=== PATIENT | female | born 1935 | race Caucasian/White ===

== ENCOUNTER → 2022-12-24 11:24 | Outpatient (REF) | payer OTHER, SELFPAY ==
[2022-12-24 11:42] LABS: Hematocrit 25.2 % (37.0-47.0); Hemoglobin 8.4 g/dL (12.0-16.0); Mean Corp Hgb Conc. 33.3 g/dL (33.0-37.0); Mean Corpuscular Hgb 31.2 pg (27.0-31.0); Mean Corpuscular Volume 93.7 fL (81.0-99.0); Mean Platelet Volume 10.7 fL (7.4-10.4); Platelet Count 196 10^3/uL (130-400); Red Blood Cell Count 2.69 10^6/uL (4.20-5.40); White Blood Cell Count 5.3 10^3/uL (4.8-10.8)
[2022-12-24 12:06] LABS: Blood Urea Nitrogen 42 mg/dl (7-17); Calcium 9.4 mg/dl (8.4-10.2); Carbon Dioxide 17 mmol/L (22-30); Chloride 110 mmol/L (98-107); Glomerular Filtration Rate 38.8; Glucose 106 mg/dl (70-99); Sodium 139 mmol/L (135-145)
== END ==
LOC: OLABWHC 11:24
PROVIDERS: ATTENDING PHYSICIAN Internal Medicine
DX: E11.9 Type 2 diabetes mellitus without complications (principal); B96.1 Klebsiella pneumoniae [K. pneumoniae] as the cause of diseases classified elsewhere; E03.9 Hypothyroidism, unspecified; I50.32 Chronic diastolic (congestive) heart failure; D64.9 Anemia, unspecified; A09 Infectious gastroenteritis and colitis, unspecified; E44.0 Moderate protein-calorie malnutrition; M62.81 Muscle weakness (generalized)
CPT/HCPCS: 36415; 80048; 85027

== ENCOUNTER 2023-10-15 14:51 | Inpatient (IN) | payer OTHER, SELFPAY ==
[2023-10-15] VITALS (7 sets, daily range): BP systolic 131–163; BP diastolic 53–67; BMI 21.4; BMI 21.0
--- NOTE | 2023-10-15 12:15 | ED.GENMED ---
History of Present Illness
General
Chief Complaint: Change in Mental Status
Source: family
Time Seen by Provider: 10/15/23 11:40
History of Present Illness
History of Present Illness:
88-year-old female with past medical history of CVA, CAD, CHF, previous IA, recently treated for urinary tract infection and finished antibiotic 2 days ago presents to the emergency department via ambulance after family noticed patient was confused
overnight with daughter stating that the patient called her at 4 AM stating that she was seeing children in her room playing with a water hose and patient wanted to call 911 as she could not find family members for the children. Family notes that
this has been occurring more frequently over the last few days. The facility that patient is a long-term resident at gave her IV fluids on Saturday which family seem to believe perked the patient up but Saturday started noticing change in mental
status again. There have been no reported fevers, nausea or vomiting, bowel changes and patient is unable to tell me if she is experienced any urinary symptoms including dysuria/frequency/urgency. Family has no other concerns at this time
Past History
Past History
ED Past Medical History: CAD, Cancer (Skin), CVA, HTN, Hypercholesterolemia, NIDDM, Hypothyroidism and Other (diarrhea w/ h/o c dif, CRI, PVD, Cellulitis,)
ED Past Surgical History: Appendectomy, Cardiac (CABG 5 vessel), Cholecystectomy, Gynecological (Hysterectomy), Orthopedic and Other (stents in legs,)
Patient has exhibited threatening behavior?: No
PSI?: No
Social History
Tobacco: Former smoker
Alcohol: Occasional
Drug: None
Personal:
Living: alone
Employment: Not employed
Family History
Family History: Other (Noncontributory)
Review of Systems
Review of Systems
All Other Systems: ROS reviewed and negative except as documented in HPI and ROS
Phy Exam
Physical Exam
Physical Exam:
GENERAL: Sleepy but arousable to voice, in no acute distress
HEAD: NCAT
EYE: clear conjunctiva
NECK: Supple
ENT: o/p clr, mildly dry mucous membranes
CARDIAC: Regular rate and rhythm .
LUNGS: Clear breath sounds bilaterally, no acute respiratory distress, no wheezes/rales/rhonchi
ABDOMEN: Soft, without focal tenderness, no r/g, no cvat
NEUROLOGICAL: Alert and oriented to self and year but was unaware of place
SKIN: Warm and dry, skin intact.
MUSCULOSKELETAL: trace ankle edema bilateral, well perfused.
PSYCH: Normal and appropriate interaction.
Scores
Heart Failure Risk
Heart Failure Risk Score: Not Applicable
Heart Score for Chest Pain Patients
STEMI patient?: Not applicable
Withdrawal Assessment of Alcohol
Withdrawal Assessment Completed?: Not applicable
Course
Orders/Labs/Results
Orders:
Orders
10/15/23 11:44
Complete Blood Count/With Diff Urgent
Comprehensive Metabolic Panel Urgent
10/15/23 11:49
Straight cath- Treatment ONCE
10/15/23 11:50
Electrocardiogram (*1) Urgent
Reason for Study: Other
Other Reason for Exam: change in mental status
CT Head W/o Iv Contrast Urgent
Comment:
Reason For Exam: change in mental status
EKG- Treatment ONCE
CR Chest Portable - 1 View Urgent
Comment:
Reason For Exam: AMS
Reason Study Needs to be Portable: Unable to Transport
10/15/23 12:01
Lactic Acid Q4H
Comment: CANCEL 2nd LACTIC ACID IF 1st LACTIC ACID IS LESS THAN 2
10/15/23 12:02
Urinalysis Reflex To Culture Urgent
Date Specimen was Collected: 10/15/23
Time Specimen was Collected: 11:59
Urine Microscopic Reflex Cult Urgent
Urine Culture Urgent
CARA Source: U
Specimen Description:
Date Specimen was Collected: 10/15/23
Time Specimen was Collected: 11:59
10/15/23 12:40
0.9% Sodium Chloride 1000 ml [Nss] 1,000 ml IV BOLUS
10/15/23 12:43
Meropenem [Merrem] 500 mg IV NOW STA
10/15/23 14:26
CT Abd/pel Without Iv Or Oral Urgent
Comment:
Reason For Exam: abdominal pain
10/15/23 14:34
Admit/Transfer Patient As Directed
Co-Sign Provider:
Level of Care: Inpatient admission
Assign to:: Telemetry
Physician / Group: Sarkis
Diagnosis: TME/UTI
Reason for Telemetry: Arrhythmia
Date to Stop Telemetry: 10/18/23
Time to Stop Telemetry: 11:00
Reason for Hospitalization: IV abx
Expected length of stay greater than two midnights?: Yes
ELOS- Estimated Length of Stay in days: 3
I certify the patient meets the requirements for IP care: Yes
10/15/23 14:35
PRN Pain Medication Management As Directed
May give lesser potent ordered pain med per pt: Yes
preference::
Protocol:: Medication orders for pain may be administered in a
manner that supports deferring to patient preference
when the pt is:
- Requesting an ordered lesser potent pain medication.
Least to most potent pain medications are defined
as: acetaminophen < NSAID < tramadol < opioids
(morphine, oxycodone, hydromorphone).
- Requesting a lesser dose of the same medication IF
ORDERED.
- Requesting a less intrusive route of administration
if both routes are prescribed by the provider (PO <
IV).
10/15/23 14:39
Code Status As Directed
Resuscitation Status: Do not resuscitate
Based on pt advanced directive or healthcare POA form: Yes
DNR Bracelet Application ONCE
10/15/23 16:00
Lactic Acid Q4H
Comment: CANCEL 2nd LACTIC ACID IF 1st LACTIC ACID IS LESS THAN 2
10/18/23 11:00
DC Protocol for Telemetry ONCE
Abnormal Lab Results
10/15/23 10/15/23
11:44 12:02
RBC 3.02 L 10^6/uL
(4.20-5.40)
Hgb 8.8 L g/dL
(12.0-16.0)
Hct 25.7 L %
(37.0-47.0)
Absolute Lymphs (auto) 1.0 L 10^3/uL
(1.2-3.4)
Lymphocytes % 15.0 L %
(20.5-51.1)
Sodium 132 L mmol/L
(135-145)
BUN 43 H mg/dl
(7-17)
Creatinine 1.7 H mg/dL
(0.6-1.0)
Glucose 180 H mg/dl
(70-99)
AST 12 L U/L
(14-36)
Total Protein 6.1 L g/dl
(6.3-8.2)
Albumin 3.4 L g/dl
(3.5-5.0)
Leukocyte Esterase Rfl 2+ A
(Negative)
Urine WBC (Reflex) 26-30 A /HPF
(0-5)
Urine Bacteria (Reflex) Many A
(Negative)
Urine Albumin (Reflex) 1+ A
(Neg - Trace)
10/15/23 11:44
10/15/23 11:44
Vital Signs
Initial and Last Documented VS:
Initial Vital Signs
Temp Pulse Pulse Ox
98.8 F 72 94
10/15/23 11:12 10/15/23 11:12 10/15/23 11:12
Last Documented Vital Signs
Temp Pulse Resp BP Pulse Ox
98.8 F 65 16 141/58 93
10/15/23 11:15 10/15/23 14:30 10/15/23 14:30 10/15/23 14:00 10/15/23 14:30
MDM/Problems Addressed
Differential Diagnosis Includes:
dementia, acute delirium, UTI, pneumonia, CVA
MDM/Problems Addressed:
88-year-old female with presenting to the emergency department via EMS for evaluation of reported change in mental status. This is seemingly been waxing and waning over the course of the last few days. Patient recently completed a treatment for
urinary tract infection with oral antibiotics this past Saturday. No reported fevers at facility. She is pleasant on arrival here, mildly confused but in no acute distress. Hemodynamically stable. Will check labs, urine, chest x-ray and head CT.
Disposition pending.
Chronic conditions affecting care: Neurological disorder (previous CVA)
*Radiology
Radiology exam reviewed: radiology read reviewed
*Pulse Oximetry
Patient hypoxic: no
*EKG
Interpreted by ED Provider?: Yes
Comparison EKG: changes noted
Heart Rate: 56
Rate: bradycardiac
Rhythm: sinus
[place]: left axis deviation
Ischemia: non-specific ST changes
*[employer] Interpretation
Rate: bradycardiac
Rhythm: sinus
*Critical Care Note
Total Time (30-74mins, 75-104mins- exclusive of procedures): Not Applicable
Data Reviewed
Review of Other/Old Records Reveals: Labs and Records
Patient Management
Discussion with other providers: Hospitalist
Escalation/DeEscalation of care consider admission/obs:
Patient's labs reveal a chronic anemia, she also has known mild chronic kidney disease but has a slightly worsening acute kidney injury today. This will be treated with small IV fluids. Patient's urinalysis noted for 2+ leukocyte esterase and
26-30 WBCs which could in the UTI. Patient had a urine culture done in February 2023 which grew ESBL E. coli which had significant resistance profile. Based off of patient's allergies combined with the resistance profiles will treat with Merrem
for the time being. Hospitalist team was notified and accepts for continued evaluation and treatment. Patient is currently hemodynamically stable although still appears somewhat from baseline.
ED Attending Note
-
Portions of this chart may have been created with voice recognition software.� Occasional wrong word or��sound alike� substitutions may have occurred due to the inherent limitations of voice recognition software.
Discharge Plan
Departure
Patient Disposition: Admit
Date of Disposition: 10/15/23
Time of Disposition: 12:45
Presentation/result/management discussed w/ accepting MD/DO: Hospitalist
Discharge Problem:
Acute UTI, Delirium
Prescriptions:
No Action
ezetimibe 10 MG tablet
10 mg PO HS
levothyroxine 88 MCG tablet
88 mcg PO DAILY
carvedilol 25 mg Tablet
25 mg PO BID
atorvastatin 20 mg tablet
20 mg PO HS
epoetin calin-epbx 10,000 unit/mL Solution
10,000 unit SC Q21D
clonidine 0.3 mg/24 hr patch weekly
1 patch transdermal QWEEK
cinacalcet 30 mg Tablet
30 mg PO DAILY Qty: 30 0RF
methenamine hippurate 1 gram Tablet
1 g PO BID
fluticasone propionate 50 mcg/actuation [place],Suspension
2 spray INTRANASAL DAILY
acetaminophen 325 mg tablet
650 mg PO DAILYPRN PRN (Reason: mild pain)
clopidogrel 75 mg Tablet
75 mg PO DAILY Qty: 30 0RF
melatonin 5 mg Tablet
5 mg PO HS Qty: 30 0RF
nifedipine 30 mg Tablet Extended Release
90 mg PO BID Qty: 120 0RF
isosorbide mononitrate 60 mg Tablet Extended Release 24 Hr
120 mg PO DAILY Qty: 60 0RF
sodium bicarbonate 650 mg Tablet
650 mg PO BID Qty: 60 0RF
famotidine 20 mg Tablet
20 mg PO QPM Qty: 30 0RF
tamsulosin 0.4 mg Capsule
0.4 mg PO DAILY Qty: 30 0RF
dicyclomine 20 mg Tablet
20 mg PO TIDPRN PRN (Reason: abd cramps)
escitalopram oxalate 10 mg Tablet
10 mg PO DAILY
cholecalciferol (vitamin D3) [Vitamin D3] 125 mcg (5,000 unit) Tablet
125 mcg PO DAILY
torsemide 20 mg tablet
40 mg PO BID
hydralazine 50 mg tablet
50 mg PO TID
Referrals:
Laci Angeles MD [Family Provider] -
Interventions
Interventions:
*Risk Screen - Suicide Last Done: 10/15/23 11:12
*General Assessment Last Done: 10/15/23 11:12
*Neglect/Abuse Screening Last Done: 10/15/23 11:12
ED- Neurological Assessment Last Done: 10/15/23 11:18
ED Swallowing Screen Last Done: 10/15/23 11:18
Discharge Date and Time
Print Language: TURKISH
[2023-10-15 12:21] LABS: Urine Albumin 1+ (Neg - Trace); Urine Bilirubin Negative (Negative); Urine Character Clear (Clear); Urine Color Yellow; Urine Glucose Negative (Negative); Urine Ketone Negative (Negative); Urine Leukocyte 2+ (Negative); Urine Nitrite Negative (Negative); Urine Occult Blood Negative (Negative); Urine Urobilinogen Negative (Neg - 1+)
[2023-10-15 12:22] LABS: % Basophils 0.7 % (0-2); % Eosinophils 5.6 % (0-6); % Immature Granulocytes 0.4 % (0-0.5); % Monocytes 8.9 % (1.7-9.3); % Neutrophils 69.4 % (42.2-75.2); Absolute Basophils 0.1 10^3/uL (0-0.2); Absolute Eosinophils 0.4 10^3/uL (0-0.7); Absolute Monocytes 0.6 10^3/uL (0.1-0.6); Absolute Neutrophils 4.7 10^3/uL (1.4-6.5); Hematocrit 25.7 % (37.0-47.0); Hemoglobin 8.8 g/dL (12.0-16.0); Mean Corp Hgb Conc. 34.2 g/dL (33.0-37.0); Mean Corpuscular Hgb 29.1 pg (27.0-31.0); Mean Corpuscular Volume 85.1 fL (81.0-99.0); Nucleated Red Blood Cells % 0 %; Platelet Count 183 10^3/uL (130-400); Red Blood Cell Count 3.02 10^6/uL (4.20-5.40); Red Cell Dist. Width 14.5 % (11.5-14.5); White Blood Cell Count 6.8 10^3/uL (4.8-10.8)
[2023-10-15 12:29] LABS: Urine Red Blood Cell 0-2 /HPF (0-2); Urine Squamous Cell 0-2 /LPF (Few); Urine White Cell 26-30 /HPF (0-5)
[2023-10-15 12:29] LABS: Lactic Acid 0.8 mmol/L (0.7-2.0)
[2023-10-15 12:30] LABS: Urine Bacteria Many (Negative)
[2023-10-15 12:30] LABS: ALT (SGPT) < 10 U/L (0-35); AST (SGOT) 12 U/L (14-36); Albumin 3.4 g/dl (3.5-5.0); Alkaline Phosphatase 79 U/L (38-126); Blood Urea Nitrogen 43 mg/dl (7-17); Carbon Dioxide 27 mmol/L (22-30); Chloride 98 mmol/L (98-107); Estimated Creatinine Clearance 20 ml/min; Glucose 180 mg/dl (70-99); Potassium 4.1 mmol/L (3.5-5.1); Sodium 132 mmol/L (135-145); Total Bilirubin 0.3 mg/dl (0.2-1.3); Total Protein 6.1 g/dl (6.3-8.2); eGFR 28.84
[2023-10-15] MEDS: NSS 1000 IV ×2 (12:57→16:22)
[2023-10-15] MEDS: MERREM 500 MG IV (12:58)
--- NOTE | 2023-10-15 14:03 | PHANOTE ---
Addendum entered by Naman Bashir 10/15/23 14:44:
Called again at 14:42, different lead front end developer staff member picked up, but once again went to voicemail after transfer to nurse.
Original Note:
med rec brandon(10/15/23)-Unable to locate medication list in ED. Called [facility] at 13:15 and 13:47, lead front end developer picked up but went to voicemail when transferred to nurse. Compiled list through [facility] and [facility], but [facility] records were very
old(from 02/28/2023). Will attempt to call again at later time.
--- NOTE | 2023-10-15 14:43 | HPS.HSE ---
Family Physician
-
Family Physician: Laci Angeles
Chief Complaint
-
Change in mental status
History of Present Illness
Patient is an 88 y/o with a PMH CVA, CAD, CHF, HTN, CKD, and hypothyroidism who reports to the ED via EMS for altered mental status x 48 hrs. History is limited by patient's confusion and family wasn't at bedside. Patient states she is a a rehab
facility and is currently being treated for a UTI but can't remember the antibiotic she was taking. She has had lower abdominal and back pain since yesterday and admits to feeling clammy, dysuria, frequency and urgency. She says her appetite is poor
but has been drinking a lot of water. She denies fever, chills, chest pain, shortness of breath, palpitations, nausea, vomiting, changes in bowel movements or edema. Family previously at bedside told ED staff patient was experiencing hallucinations
over the weekend.
Medical History
Past Medical History
Past Medical History: Reports Other
Additional Past Medical History:
ASCVD (CAD and PAD)
Hypertension
Chronic HFpEF
CKD III
Hypothyroidism
Urinary Retention
Generalized Anxiety
Hyperparathyroidism
Past Surgical History: Reports Other
Additional Past Surgical History:
CABG x 5
PTCA with Coronary Stenting
Right LE Arterial Stents
SHAINA
Cholecystectomy
Right Hip ORIF (01/06/23)
Social History
Tobacco: Former Smoker (Quit smoking over 50 years ago.)
Personal:
Living: [facility]
Family History
Family History: Not pertinent
Allergies / Home Medications
Allergies reflects when Allergies were last updated in [facility].
Home Medications with original date entered in [facility]
Allergy/Medication List:
Allergies
Allergy/AdvReac Type Severity Reaction Status Date / Time
lactose Allergy Nausea Verified 02/23/23 10:03
latex [Latex] Allergy Rash Verified 02/23/23 09:04
Latex, Natural Rubber Allergy Rash Verified 02/23/23 09:04
levofloxacin Allergy Rash Verified 02/23/23 09:04
peanut Allergy Itching/NEDA Verified 02/23/23 09:04
H
Penicillins Allergy Rash; Verified 02/27/23 09:05
TOLERATES
CEPHALOSPORINS
Sulfa (Sulfonamide Allergy Rash Verified 02/23/23 09:04
Antibiotics)
Home Medications
ezetimibe 10 mg tablet 10 mg PO HS High cholesterol 05/03/10
levothyroxine 88 mcg tablet 88 mcg PO DAILY Thyroid 09/04/20
atorvastatin 20 mg tablet 20 mg PO HS High Cholesterol 07/26/22
carvedilol 25 mg tablet 25 mg PO BID Heart Failure 07/26/22
epoetin aclin-epbx 10,000 unit/mL injection solution 10,000 unit SC Q21D anemia 07/26/22
clonidine 0.3 mg/24 hr weekly transdermal patch 1 patch transdermal QWEEK Neurological Condition 01/04/23
cinacalcet 30 mg tablet 30 mg PO DAILY Kidney Disease #30 tabs 02/19/23
acetaminophen 325 mg tablet 650 mg PO DAILYPRN PRN mild pain 02/23/23
fluticasone propionate 50 mcg/actuation nasal spray,suspension 2 spray intranasal DAILY Allergies 02/23/23
methenamine hippurate 1 gram tablet 1 g PO BID Urinary Issue 02/23/23
clopidogrel 75 mg tablet 75 mg PO DAILY #30 tabs 02/28/23
famotidine 20 mg tablet 20 mg PO QPM #30 tabs 02/28/23
isosorbide mononitrate 60 mg tablet,extended release 24 hr 120 mg (2 x 60 mg) PO DAILY #60 tabs 02/28/23
melatonin 5 mg tablet 5 mg PO HS #30 tabs 02/28/23
nifedipine 30 mg tablet,extended release 90 mg (3 x 30 mg) PO BID #120 tabs 02/28/23
sodium bicarbonate 650 mg tablet 650 mg PO BID #60 tabs 02/28/23
tamsulosin 0.4 mg capsule 0.4 mg PO DAILY #30 caps 02/28/23
cholecalciferol (vitamin D3) 125 mcg (5,000 unit) tablet (Vitamin D3) 125 mcg PO DAILY 10/15/23
dicyclomine 20 mg tablet 20 mg PO TIDPRN PRN abd cramps 10/15/23
escitalopram oxalate 10 mg tablet 10 mg PO DAILY 10/15/23
hydralazine 50 mg tablet 50 mg PO TID 10/15/23
torsemide 20 mg tablet 40 mg PO BID 10/15/23
Review of Systems
-
A 12 point ROS was completed and negative except as noted: Yes
Constitutional: Denies Fever or Chills
Respiratory: Denies Cough or Trouble Breathing
Cardiac: Denies Chest Pain or Palpitations
Physical Exam
Vital Signs
Vital Signs
Temp Pulse Resp BP Pulse Ox
98.8 F 65 16 141/58 93
10/15/23 11:15 10/15/23 14:30 10/15/23 14:30 10/15/23 14:00 10/15/23 14:30
Physical Exam
General: Comfortable and Conversant
HEENT: Anicteric and Moist mucous membranes
Respiratory: Clear and Non Labored Respirations
Cardiac: S1/S2 and Regular Rhythm
GI: Soft and Non Tender
Rectal: Deferred by Provider
Musculoskeletal: No Clubbing, No Cyanosis and No Edema
Skin: Warm and Dry
Neuro: Awake, Alert, Oriented and Nonfocal/grossly intact
Psych: Confused
Laboratory Results
-
10/15/23 11:44
10/15/23 11:44
Laboratory Results
Lactic Acid 0.8 mmol/L (0.7-2.0) 10/15/23 12:01
Total Bilirubin 0.3 mg/dl (0.2-1.3) 10/15/23 11:44
AST 12 U/L (14-36) L 10/15/23 11:44
ALT < 10 U/L (0-35) 10/15/23 11:44
Alkaline Phosphatase 79 U/L (38-126) 10/15/23 11:44
Data Reviewed
-
CT Scan: Report Reviewed by me
Lab Data: Labs Reviewed by me
Impression/Plan
-
TME secondary to UTI
-Reviewed prior culture data with ESBL E.coli
-Check Abd/Pelvis CT scan
-Continue meropenem
-Await urine culture
CKD Stage III
-Creatinine slightly above baseline
-Give amount of IVFs overnight
-Hold furosemide
ASCVD (CAD and PAD)
-Continue Plavix
-Hold isosorbide until able to confirmed dose
Chronic HFpEF
-Hold torsemide
-Monitor Is&Os and Daily Weights
Hypertension
-Continue Coreg, Hydralazine and Nifedipine with hold parameters
-Continue clonidine patch
Hyperlipidemia
-Continue atorvastatin and Zetia
Anemia of Chronic Disease
-Hgb at baseline
Hypothyroidism
-Continue levothyroxine
Generalized Anxiety Disorder
-Continue Lexapro
Hyperparathyroidism
-Continue cinacalcet
DVT proph: SC Heparin
Code Status: DNR per [place] Paperwork
--- NOTE | 2023-10-15 15:33 | W.PN.UPDATE ---
Update Note
Progress Note Update
I have independently evaluated the patient and agreeable with assessment and plan from same date H&P. In addition:
88yo F with PMHx CKD stage 3, CAD s/p PCI, Hx of CVA, HLD, anemia, hypothyroidism, HFpEF, Hx of urinary retention brought with fluctuating mental status for more then 48h. With previous Hx of ESBL UTI and UA concerning for infection - started on
Merrem
#Acute septic encephalopathy
Merrem
Follow Ucx
Bcx
CT abd/pelvis: no nephrolithiasis or hydronephrosis
#CKD stage 3 with mild Cr elevation
IVF and follow Cr
#CAD s/p PCI
#Chronic HFpEF
#HLD
#Essential HTN
#Anemia of chronic disease
#Hypothyroidism
#GALILEA
#Hyperparathyroidism
cont home meds
#Stable R renal mass
Unchanged since 10.30.22
Outpatient Urologist
#Hiatal hernia
#Liver cyst
#DJD
#Diverticulosis
follow up with PCP
DNR/DNI
DVT ppx Hep
It was more then 76min spent admitting patient, reviewing previous chart and new test results and direct patient care
[2023-10-15] MEDS: APRESOLINE 50 MG PO ×2 (16:22→22:20)
[2023-10-15] MEDS: HEPARIN 5000 UNITS SC (16:23)
[2023-10-15] MEDS: PEPCID 20 MG PO (17:34)
[2023-10-15] MEDS: COREG 25 MG PO (20:27)
[2023-10-15] MEDS: PROCARDIA XL (EXTENDED RELEASE) 90 MG PO (20:27)
[2023-10-15] MEDS: SODIUM BICARBONATE 650 MG PO (20:27)
[2023-10-15] MEDS: ZETIA 10 MG PO (22:21)
[2023-10-15] MEDS: LIPITOR 20 MG PO (22:21)
[2023-10-16] VITALS (7 sets, daily range): BP systolic 137–189; BP diastolic 44–67; PULSE 71; BMI 21.3
[2023-10-16] MEDS: HEPARIN 5000 UNITS SC ×3 (01:04→16:55)
[2023-10-16] MEDS: MERREM 500 MG IV ×2 (01:04→11:05)
[2023-10-16] MEDS: STERILE WATER FOR INJECTION 10 ML IV ×2 (01:04→11:06)
[2023-10-16] MEDS: SYNTHROID 88 MCG PO (05:34)
[2023-10-16 06:54] LABS: Hematocrit 26.9 % (37.0-47.0); Hemoglobin 9.4 g/dL (12.0-16.0); Mean Corp Hgb Conc. 34.9 g/dL (33.0-37.0); Mean Corpuscular Hgb 30.3 pg (27.0-31.0); Mean Corpuscular Volume 86.8 fL (81.0-99.0); Mean Platelet Volume 9.5 fL (7.4-10.4); Platelet Count 149 10^3/uL (130-400); Red Cell Dist. Width 14.2 % (11.5-14.5); White Blood Cell Count 5.9 10^3/uL (4.8-10.8)
[2023-10-16 07:14] LABS: Blood Urea Nitrogen 35 mg/dl (7-17); Calcium 8.9 mg/dl (8.4-10.2); Carbon Dioxide 23 mmol/L (22-30); Chloride 108 mmol/L (98-107); Estimated Creatinine Clearance 26 ml/min; Glucose 109 mg/dl (70-99); Potassium 3.9 mmol/L (3.5-5.1); Sodium 138 mmol/L (135-145)
[2023-10-16 07:44] LABS: TSH Reflex To Free T4 2.36 uIU/ml (0.47-4.68)
[2023-10-16] MEDS: SODIUM BICARBONATE 650 MG PO ×2 (07:58→20:05)
[2023-10-16] MEDS: FLOMAX 0.4 MG PO (07:58)
[2023-10-16] MEDS: LEXAPRO 10 MG PO (07:59)
[2023-10-16] MEDS: SENSIPAR 30 MG PO (07:59)
[2023-10-16] MEDS: PLAVIX 75 MG PO (07:59)
[2023-10-16] MEDS: COREG 25 MG PO ×2 (07:59→20:05)
[2023-10-16] MEDS: APRESOLINE 50 MG PO ×3 (07:59→22:54)
[2023-10-16] MEDS: CATAPRES-TTS-3 0.3 MG TRANSDERM (08:02)
[2023-10-16] MEDS: PROCARDIA XL (EXTENDED RELEASE) 90 MG PO ×2 (08:07→20:06)
--- NOTE | 2023-10-16 10:24 | W.PN.HOSP.TC ---
Today's Communication/Plan
-
cont merrem
Assessment / Plan
Assessment / Plan
88yo F with PMHx CKD stage 3, CAD s/p PCI, Hx of CVA, HLD, anemia, hypothyroidism, HFpEF, Hx of urinary retention brought with fluctuating mental status for more then 48h. With previous Hx of ESBL UTI and UA concerning for infection - started on
Merrem
#Acute septic encephalopathy
Merrem
Follow Ucx: E.coli
Bcx
CT abd/pelvis: no nephrolithiasis or hydronephrosis
#CKD stage 3 with mild Cr elevation
IVF and follow Cr
#CAD s/p PCI
#Chronic HFpEF
#HLD
#Essential HTN
#Anemia of chronic disease
#Hypothyroidism
#GALILEA
#Hyperparathyroidism
cont home meds
#Stable R renal mass
Unchanged since 10.30.22
Outpatient Urologist
#Hiatal hernia
#Liver cyst
#DJD
#Diverticulosis
follow up with PCP
DNR/DNI
DVT ppx Hep
I have spent at least 56min reviewing the chart, test results and direct patient care
Anticipated Discharge: > 48 hours
Subjective/Interval History
-
Date of Service: October 16, 2023
Objective Data
-
Labs:
Laboratory Results
10/16/23
06:34
WBC 5.9
Hgb 9.4 L
Hct 26.9 L
Plt Count 149
Sodium 138
Potassium 3.9
Chloride 108 H
Carbon Dioxide 23
BUN 35 H
Creatinine 1.3 H
Glucose 109 H
Calcium 8.9
Vital Signs:
Vital Signs
Temp Pulse Resp BP Pulse Ox
97.6 F 71 18 148/64 94
10/16/23 07:00 10/16/23 07:59 10/16/23 07:00 10/16/23 07:59 10/16/23 09:07
Review of Systems
-
Unable to obtain full review of systems at this time due to: Dementia
History Source: Patient
All other systems: Reviewed and negative
Physical Exam
-
General: Well Developed and Well Nourished
HEENT: Normocephalic and Atraumatic
Respiratory: Clear to Auscultation
Cardiac: Regular Rhythm
GI: Soft, Nontender and Nondistended
Genito-urinary: No Costovertebral Tender
Musculoskeletal: No Clubbing, No Cyanosis and No Edema
Skin: Warm
Neuro: Awake, Alert and Oriented
Psych: Calm and Apparent Dementia
[2023-10-16] MEDS: NSS 1000 IV (11:06)
--- NOTE | 2023-10-16 15:09 | CM ---
Pt admitted for UTI/confusion
From [facility] - LTC - confirmed with daughter and Titi at
Daughter prefers pt to return to [facility]
PCP - Laci Angeles
Pharm - [facility]
Plan - anticipate return to the [facility] when medically stable
[2023-10-16] MEDS: PEPCID 20 MG PO (17:00)
[2023-10-16] MEDS: TYLENOL 650 MG PO (20:11)
[2023-10-16] MEDS: ZETIA 10 MG PO (22:54)
[2023-10-16] MEDS: LIPITOR 20 MG PO (22:54)
[2023-10-17] MEDS: HEPARIN 5000 UNITS SC ×2 (00:24→08:16)
[2023-10-17] MEDS: STERILE WATER FOR INJECTION 10 ML IV ×2 (00:24→12:02)
[2023-10-17] MEDS: MERREM 500 MG IV (00:25)
[2023-10-17] MEDS: NSS 1000 IV (00:34)
[2023-10-17 03:25] VITALS: BP 162/64
[2023-10-17] MEDS: SYNTHROID 88 MCG PO (05:30)
[2023-10-17 06:00] VITALS: BMI 21.4
[2023-10-17 06:21] LABS: % Basophils 0.8 % (0-2); % Eosinophils 4.7 % (0-6); % Immature Granulocytes 0.5 % (0-0.5); % Lymphocytes 16.2 % (20.5-51.1); % Monocytes 8.7 % (1.7-9.3); % Neutrophils 69.1 % (42.2-75.2); Absolute Basophils 0.1 10^3/uL (0-0.2); Absolute Eosinophils 0.3 10^3/uL (0-0.7); Absolute Monocytes 0.5 10^3/uL (0.1-0.6); Absolute Neutrophils 4.3 10^3/uL (1.4-6.5); Hematocrit 28.3 % (37.0-47.0); Hemoglobin 9.6 g/dL (12.0-16.0); Mean Corp Hgb Conc. 33.9 g/dL (33.0-37.0); Mean Corpuscular Volume 88.4 fL (81.0-99.0); Mean Platelet Volume 9.4 fL (7.4-10.4); Nucleated Red Blood Cells % 0 %; Platelet Count 159 10^3/uL (130-400); Red Cell Dist. Width 14.4 % (11.5-14.5); White Blood Cell Count 6.2 10^3/uL (4.8-10.8)
[2023-10-17 06:51] LABS: ALT (SGPT) < 10 U/L (0-35); AST (SGOT) 12 U/L (14-36); Albumin 3.1 g/dl (3.5-5.0); Alkaline Phosphatase 82 U/L (38-126); Blood Urea Nitrogen 28 mg/dl (7-17); Carbon Dioxide 24 mmol/L (22-30); Chloride 111 mmol/L (98-107); Estimated Creatinine Clearance 29 ml/min; Glucose 103 mg/dl (70-99); Potassium 3.7 mmol/L (3.5-5.1); Sodium 141 mmol/L (135-145); Total Bilirubin 0.3 mg/dl (0.2-1.3); Total Protein 5.7 g/dl (6.3-8.2); eGFR 43.81
[2023-10-17 07:00] VITALS: BP 157/60
[2023-10-17] MEDS: SENSIPAR 30 MG PO (08:15)
[2023-10-17] MEDS: LEXAPRO 10 MG PO (08:15)
[2023-10-17] MEDS: APRESOLINE 50 MG PO ×2 (08:15→15:26)
[2023-10-17] MEDS: PROCARDIA XL (EXTENDED RELEASE) 90 MG PO (08:16)
[2023-10-17] MEDS: COREG 25 MG PO (08:16)
[2023-10-17] MEDS: PLAVIX 75 MG PO (08:16)
[2023-10-17] MEDS: FLOMAX 0.4 MG PO (08:16)
[2023-10-17] MEDS: SODIUM BICARBONATE 650 MG PO (08:16)
[2023-10-17 11:00] VITALS: BP 154/58
[2023-10-17] MEDS: REFRESH EYE DROPS (PF) 1 DROPS OPHTH (12:02)
[2023-10-17] MEDS: ROCEPHIN 1000 MG IV (12:02)
--- NOTE | 2023-10-17 12:28 | W.PN.HOSP.TC ---
Today's Communication/Plan
-
Rocephin
PT/OT and d/c depending on assessment
Assessment / Plan
Assessment / Plan
88yo F with PMHx CKD stage 3, CAD s/p PCI, Hx of CVA, HLD, anemia, hypothyroidism, HFpEF, Hx of urinary retention brought with fluctuating mental status for more then 48h. With previous Hx of ESBL UTI and UA concerning for infection - started on
Merrem, but Ucx grew pansensitive e.coli. Pending PT/OT and D/C
A/P:
#Acute septic encephalopathy - resolved
#UTI
Merrem
Follow Ucx: E.coli pansensitive - stwitch to Rocephin and Cefuroxime upon d/c
Bcx
CT abd/pelvis: no nephrolithiasis or hydronephrosis
#CKD stage 3 with mild Cr elevation
IVF and follow Cr
#CAD s/p PCI
#Chronic HFpEF
#HLD
#Essential HTN
#Anemia of chronic disease
#Hypothyroidism
#GALILEA
#Hyperparathyroidism
cont home meds
#Stable R renal mass
Unchanged since 10.30.22
Outpatient Urologist
#Hiatal hernia
#Liver cyst
#DJD
#Diverticulosis
follow up with PCP
DNR/DNI
DVT ppx Hep
I have spent at least 36min reviewing the chart, test results and direct patient care
Anticipated Discharge: Within 24 hours
Subjective/Interval History
-
Date of Service: October 17, 2023
Objective Data
-
Labs:
Laboratory Results
10/17/23
05:55
WBC 6.2
Hgb 9.6 L
Hct 28.3 L
Plt Count 159
Sodium 141
Potassium 3.7
Chloride 111 H
Carbon Dioxide 24
BUN 28 H
Creatinine 1.2 H
Glucose 103 H
Calcium 9.0
Total Bilirubin 0.3
AST 12 L
ALT < 10
Alkaline Phosphatase 82
Vital Signs:
Vital Signs
Temp Pulse Resp BP Pulse Ox
97.8 F 61 18 154/58 93
10/17/23 11:00 10/17/23 11:00 10/17/23 11:00 10/17/23 11:00 10/17/23 11:00
I&O
10/16/23 10/17/23 10/18/23
06:59 06:59 06:59
Intake Total 270 / 270
Balance 270 / 270
Review of Systems
-
History Source: Patient and Family
All other systems: Reviewed and negative
Physical Exam
-
General: No Apparent Distress
HEENT: Normocephalic
Respiratory: Clear to Auscultation
Cardiac: Regular Rhythm
GI: Soft, Nontender and Nondistended
Genito-urinary: No Costovertebral Tender
Musculoskeletal: No Clubbing, No Cyanosis and No Edema
Skin: Warm
Neuro: Awake, Alert and Oriented
Psych: Calm
--- NOTE | 2023-10-17 12:53 | CM ---
Addendum entered by Michelle Valentino 10/17/23 15:28:
Transport at 4:15PM
Facility aware
Spoke with daughter - aware
Discussed IMM with daughter
Plan - transfer to the [facility]
R - [phone]
- [phone]
Original Note:
Case management following for d/c planning
Medically ready for d/c per Dr Nazario
Spoke with Titi at [facility] - aware of d/c and SNF recs per PT/OT
Per Titi - have obtained auth at facility
Plan - transfer to the [facility]
R - [phone]
- [phone]
--- NOTE | 2023-10-17 12:53 | W.DCSUMMARY ---
Discharge Summary
Discharge Data
Date of Admission: 10/15/23
Date of Discharge: 10/17/23
-
Pending Results: No
Hospital Course
88yo F with PMHx CKD stage 3, CAD s/p PCI, Hx of CVA, HLD, anemia, hypothyroidism, HFpEF, Hx of urinary retention brought with fluctuating mental status for more then 48h. With previous Hx of ESBL UTI and UA concerning for infection - started on
Merrem, but Ucx grew pansensitive e.coli. STarted on Cefuroxime. VERONICA resolved. Torsemide dose decreased to once a day. Medically stable for discharge. I have spent at least 36 min preparing discharge
Patient was managed for:
#Acute septic encephalopathy
#CKD stage 3 with mild Cr elevation
#CAD s/p PCI
#Chronic HFpEF
#HLD
#Essential HTN
#Anemia of chronic disease
#Hypothyroidism
#GALILEA
#Hyperparathyroidism
#Stable R renal mass
#Hiatal hernia
#Liver cyst
#DJD
#Diverticulosis
Discharge Plan
-
Patient Disposition: Usp/SNF
Diet: Regular
Activity: As tolerated
Driving Restrictions: As prior to admission
Bathing Restrictions: OK to Shower
Referrals:
Laci Angeles MD [Family Provider] -
Prescriptions:
New
Refresh Classic (PF) 1.4-0.6 % Dropperette
1 drops ophthalmic (eye) QIDPRN PRN (Reason: dry eye, crust) 10 Days Qty: 1 0RF
torsemide 20 mg tablet
40 mg PO DAILY Qty: 30 0RF
Continued
ezetimibe 10 MG tablet
10 mg PO HS
levothyroxine 88 MCG tablet
88 mcg PO DAILY
carvedilol 25 mg Tablet
25 mg PO BID
atorvastatin 20 mg tablet
20 mg PO HS
epoetin calin-epbx 10,000 unit/mL Solution
10,000 unit SC Q21D
clonidine 0.3 mg/24 hr patch weekly
1 patch transdermal QWEEK
cinacalcet 30 mg Tablet
30 mg PO DAILY Qty: 30 0RF
methenamine hippurate 1 gram Tablet
1 g PO BID
fluticasone propionate 50 mcg/actuation [place],Suspension
2 spray INTRANASAL DAILY
acetaminophen 325 mg tablet
650 mg PO DAILYPRN PRN (Reason: mild pain)
clopidogrel 75 mg Tablet
75 mg PO DAILY Qty: 30 0RF
nifedipine 30 mg Tablet Extended Release
90 mg PO BID Qty: 120 0RF
sodium bicarbonate 650 mg Tablet
650 mg PO BID Qty: 60 0RF
famotidine 20 mg Tablet
20 mg PO QPM Qty: 30 0RF
tamsulosin 0.4 mg Capsule
0.4 mg PO DAILY Qty: 30 0RF
dicyclomine 20 mg Tablet
20 mg PO TIDPRN PRN (Reason: abd cramps)
escitalopram oxalate 10 mg Tablet
10 mg PO DAILY
cholecalciferol (vitamin D3) [Vitamin D3] 125 mcg (5,000 unit) Tablet
125 mcg PO DAILY
hydralazine 50 mg tablet
50 mg PO TID
isosorbide mononitrate 60 mg tablet extended release 24 hr
120 mg PO DAILY
melatonin 5 mg tablet
5 mg PO HS
Discontinued
torsemide 20 mg tablet
40 mg PO BID
Discharge Orders:
Discharge Patient (As Directed); Ordered 10/17/23
Ordered By: Sidney Dockery
Discharge Date and Time
Print Language: DANISH
[2023-10-17 15:25] VITALS: BP 168/69
--- NOTE | 2023-10-17 15:34 | PTCARENOTE ---
This Rn attempted to call report to [facility] using [phone] per CM note at 14:18, 14:20, 14:23, 15:07, and 15:34; there was no answer besides the very first call which was transferred and no one picked up at that time.
--- NOTE | 2023-10-21 16:32 | PN.CDI ---
Addendum entered and electronically signed by Sidney Dockery MD 10/22/23 10:27:
no update to be done - encephalopathy caused by infection
Original Note:
CDI
- -
CDI:
Physician Documentation Request
Admit Date: 10/15/23 14:51
Dear Doctor Sarkis,
Please review the following and provide your response in the progress notes.
Clinical Indicators:
Pt admitted with toxic metabolic encephalopathy and UTI.
10/15 & 10/16 progress notes: 'Acute septic encephalopathy.'
No documentation of sepsis noted in chart.
Selected Entries
10/15/23
11:12 10/15/23
13:15 10/15/23
14:30
Temp 98.8 F 98.2 97.6
Pulse 62 65
Resp Rate 16 17 16
Laboratory Tests
10/15/23 10/16/23 10/17/23
11:44 06:34 05:55
WBC 6.8 5.9 6.2
�Sepsis
-Systemic manifestations of infection, with 2 or more SIRS criteria which include:
-Fever > 100.4��F or hypothermia < 96.8��F
-Leukocytosis WBC > 12,000 or leukopenia, WBC < 4,000, or > 10% bands
-Tachycardia- > 90 beats/minute
-Tachypnea- RR > 20 breaths/minute or PaCO2 < 32mmHg
Source: Merck Manual 2013
Based on the above information and the recognized standard SIRS criteria, please clarify if sepsis is still an accurate diagnosis, and reflective of the patient�s condition, to ensure quality of the medical record.
Please clarify in the Progress Notes:
Sepsis is/was present and is a clinical diagnosis
Urinary tract Infection only
Use of terms such as suspected, likely, concern for, or probable (associated with a specific diagnosis that is being evaluated, monitored, or treated as if it exists) are acceptable and can be coded in the inpatient setting, when documented at the
time of discharge.
Thank you,
Myrna Farley RN, BSN
CDI Specialist
Available via [place] Text
Please use your independent medical judgment in providing your response.
== END 2023-10-17 16:33 | DRG 689 ==
LOC: 3 WEST ACU 14:51
PROVIDERS: Physician Assistant Medical; ADMITTING PHYSICIAN Internal Medicine; EMERGENCY PHYSICIAN Student in an Organized Health Care Education/Training Program; FAMILY PHYSICIAN Internal Medicine
DX: N39.0 Urinary tract infection, site not specified (principal); G93.41 Metabolic encephalopathy; I13.0 Hypertensive heart and chronic kidney disease with heart failure and stage 1 through stage 4 chronic kidney disease, or unspecified chronic kidney disease; I50.32 Chronic diastolic (congestive) heart failure; N17.9 Acute kidney failure, unspecified; D63.1 Anemia in chronic kidney disease; E11.22 Type 2 diabetes mellitus with diabetic chronic kidney disease; E11.51 Type 2 diabetes mellitus with diabetic peripheral angiopathy without gangrene; K76.89 Other specified diseases of liver; N18.30 Chronic kidney disease, stage 3 unspecified; E03.9 Hypothyroidism, unspecified; Z95.820 Peripheral vascular angioplasty status with implants and grafts; Z66 Do not resuscitate; B96.20 Unspecified Escherichia coli [E. coli] as the cause of diseases classified elsewhere; K44.9 Diaphragmatic hernia without obstruction or gangrene; E21.3 Hyperparathyroidism, unspecified; E78.00 Pure hypercholesterolemia, unspecified; F41.1 Generalized anxiety disorder; K57.30 Diverticulosis of large intestine without perforation or abscess without bleeding; R33.9 Retention of urine, unspecified; I25.10 Atherosclerotic heart disease of native coronary artery without angina pectoris; I25.2 Old myocardial infarction; N28.89 Other specified disorders of kidney and ureter; M19.90 Unspecified osteoarthritis, unspecified site; Z95.1 Presence of aortocoronary bypass graft; Z95.5 Presence of coronary angioplasty implant and graft; Z79.02 Long term (current) use of antithrombotics/antiplatelets; Z79.890 Hormone replacement therapy; Z79.899 Other long term (current) drug therapy; Z87.891 Personal history of nicotine dependence; Z90.49 Acquired absence of other specified parts of digestive tract; Z87.81 Personal history of (healed) traumatic fracture; Z86.73 Personal history of transient ischemic attack (TIA), and cerebral infarction without residual deficits; Z87.440 Personal history of urinary (tract) infections; Z90.710 Acquired absence of both cervix and uterus; Z88.0 Allergy status to penicillin; Z88.1 Allergy status to other antibiotic agents; Z88.2 Allergy status to sulfonamides
CPT/HCPCS: 70450; 71045; 74176; 80048; 80053; 81003; 81015; 83605; 84443; 85025; 85027; 87086; 87088; 87186; 93005; 96361; 96374; 97162; 97167; 99285

== ENCOUNTER 2023-11-19 16:35 | Emergency (ER) | payer OTHER, SELFPAY ==
[2023-11-19 16:40] VITALS: BP 123/47; BMI 23.4
[2023-11-19 17:00] VITALS: BP 124/47
[2023-11-19 17:17] LABS: % Basophils 0.6 % (0-2); % Eosinophils 3.8 % (0-6); % Immature Granulocytes 0.8 % (0-0.5); % Lymphocytes 9.5 % (20.5-51.1); % Monocytes 9.8 % (1.7-9.3); % Neutrophils 75.5 % (42.2-75.2); Absolute Basophils 0.1 10^3/uL (0-0.2); Absolute Eosinophils 0.3 10^3/uL (0-0.7); Absolute Immature Granulocytes 0.1 10^3/uL (0-0.05); Absolute Lymphocytes 0.8 10^3/uL (1.2-3.4); Absolute Monocytes 0.8 10^3/uL (0.1-0.6); Mean Corp Hgb Conc. 34.6 g/dL (33.0-37.0); Mean Corpuscular Hgb 29.7 pg (27.0-31.0); Mean Corpuscular Volume 85.8 fL (81.0-99.0); Mean Platelet Volume 9.2 fL (7.4-10.4); Nucleated Red Blood Cells % 0 %; Platelet Count 205 10^3/uL (130-400); Red Blood Cell Count 3.03 10^6/uL (4.20-5.40); Red Cell Dist. Width 14.4 % (11.5-14.5)
[2023-11-19 17:31] LABS: ALT (SGPT) < 10 U/L (0-35); AST (SGOT) 13 U/L (14-36); Albumin 2.9 g/dl (3.5-5.0); Alkaline Phosphatase 73 U/L (38-126); Blood Urea Nitrogen 43 mg/dl (7-17); Calcium 9.3 mg/dl (8.4-10.2); Carbon Dioxide 26 mmol/L (22-30); Chloride 104 mmol/L (98-107); Estimated Creatinine Clearance 27 ml/min; Glucose 113 mg/dl (70-99); Potassium 4.3 mmol/L (3.5-5.1); Sodium 139 mmol/L (135-145); Total Bilirubin 0.3 mg/dl (0.2-1.3); Total Protein 5.7 g/dl (6.3-8.2); eGFR 43.81
[2023-11-19 18:05] VITALS: BP 116/46
[2023-11-19 18:20] LABS: Urine Albumin 1+ (Neg - Trace); Urine Bilirubin Negative (Negative); Urine Character Slightly Cloudy (Clear); Urine Color Yellow; Urine Glucose Negative (Negative); Urine Ketone Negative (Negative); Urine Leukocyte 2+ (Negative); Urine Nitrite Negative (Negative); Urine Occult Blood Negative (Negative); Urine Urobilinogen Negative (Neg - 1+)
[2023-11-19 18:33] LABS: Lipase 19 U/L (23-300)
[2023-11-19 18:38] LABS: Urine Red Blood Cell 0-2 /HPF (0-2)
[2023-11-19 18:39] LABS: Urine Bacteria Many (Negative)
[2023-11-19 19:00] VITALS: BP 100/51
--- NOTE | 2023-11-19 19:50 | ED.GENMED ---
Addendum entered and electronically signed by Cam Mar PA-C 11/22/23 07:49:
Urine culture shows greater than 100,000 colony-forming units of E. coli ESBL. Patient was placed on doxycycline. Result was faxed to the [facility] for their review
Original Note:
History of Present Illness
General
Chief Complaint: Urinary Symptoms
Source: [facility]
Exam Limitations: none
Time Seen by Provider: 11/19/23 17:01
Nursing documentation reviewed up to this point in time: agreed with
History of Present Illness
History of Present Illness:
Patient sent to ED for non draining kim catheter. Catheter was placed this AM and little urine has collected. custodial reports that she appears more confused than normal. Brought to ED via EMS for eval.
Past History
Past History
ED Past Medical History: CAD, Cancer (Skin), CVA, HTN, Hypercholesterolemia, NIDDM, Hypothyroidism and Other (diarrhea w/ h/o c dif, CRI, PVD, Cellulitis,)
ED Past Surgical History: Appendectomy, Cardiac (CABG 5 vessel), Cholecystectomy, Gynecological (Hysterectomy), Orthopedic and Other (stents in legs,)
Patient has exhibited threatening behavior?: No
PSI?: No
Social History
Tobacco: Former smoker
Alcohol: Occasional
Drug: None
Personal:
Living: alone
Employment: Not employed
Family History
Family History: Other (Noncontributory)
Review of Systems
Review of Systems
Allergies reviewed?: Yes
All Other Systems: ROS reviewed and negative except as documented in HPI and ROS
Constitutional: Reports no symptoms
EENT: Reports no symptoms
Respiratory: Reports no symptoms
Cardiac: Reports no symptoms
ABD/GI: Reports no symptoms
: Reports other (non functioning kim catheter. RN repositioned tubing and an immediate 700cc drained. No further issues)
Musculoskeletal: Reports no symptoms
Skin: Reports no symptoms
Neurological: Reports no symptoms
Psychiatric: Reports no symptoms
Phy Exam
General Physical Exam
General Presentation: well appearing and no apparent distress
General age: appears stated age
General Skin: warm and dry
General Habitus: normal
Cardiovascular Exam
Cardiovascular Exam: regular rate/rhythm and no edema
Pulmonary Exam
Pulmonary Exam: lungs clear, no respiratory distress and chest non tender
Gastrointestinal Exam
Gastrointestinal Exam: non tender, soft and no organomegaly
Musculoskeletal Exam
Musculoskeletal Exam: full ROM and neuro vasc intact
Skin Exam
Skin Exam: normal color, warm/dry and no rash
Psychiatric Exam
Psychiatric Exam: normal mood/affect
Course
Orders/Labs/Results
Orders:
Orders
11/19/23 17:04
Complete Blood Count/With Diff Urgent
Comprehensive Metabolic Panel Urgent
Lipase Urgent
Comment: ADD ON
11/19/23 17:16
CR Chest - 2 Views Urgent
Comment:
Reason For Exam: weakness
11/19/23 17:19
Add On- LAB Urgent
Tests Added?: lipase
11/19/23 18:13
Urinalysis Reflex To Culture Urgent
Date Specimen was Collected: 11/19/23
Time Specimen was Collected: 17:20
Urine Microscopic Reflex Cult Urgent
Urine Culture Urgent
CARA Source: U
Specimen Description:
Date Specimen was Collected: 11/19/23
Time Specimen was Collected: 17:20
Abnormal Lab Results
11/19/23 11/19/23
17:04 18:13
RBC 3.03 L 10^6/uL
(4.20-5.40)
Hgb 9.0 L g/dL
(12.0-16.0)
Hct 26.0 L %
(37.0-47.0)
Abs Immat Gran (auto) 0.1 H 10^3/uL
(0-0.05)
Absolute Lymphs (auto) 0.8 L 10^3/uL
(1.2-3.4)
Absolute Monos (auto) 0.8 H 10^3/uL
(0.1-0.6)
Immature Gran % 0.8 H %
(0-0.5)
Neutrophils % 75.5 H %
(42.2-75.2)
Lymphocytes % 9.5 L %
(20.5-51.1)
Monocytes % 9.8 H %
(1.7-9.3)
BUN 43 H mg/dl
(7-17)
Creatinine 1.2 H mg/dL
(0.6-1.0)
Glucose 113 H mg/dl
(70-99)
AST 13 L U/L
(14-36)
Total Protein 5.7 L g/dl
(6.3-8.2)
Albumin 2.9 L g/dl
(3.5-5.0)
Lipase 19 L U/L
(23-300)
Leukocyte Esterase Rfl 2+ A
(Negative)
Urine WBC (Reflex) 11-15 A /HPF
(0-5)
Urine Bacteria (Reflex) Many A
(Negative)
Urine Albumin (Reflex) 1+ A
(Neg - Trace)
11/19/23 17:04
11/19/23 17:04
Vital Signs
Initial and Last Documented VS:
Initial Vital Signs
Temp Pulse Resp BP Pulse Ox
99.2 F 65 23 123/47 91
11/19/23 16:40 11/19/23 16:40 11/19/23 16:40 11/19/23 16:40 11/19/23 16:40
Last Documented Vital Signs
Temp Pulse Resp BP Pulse Ox
99.2 F 65 20 100/51 95
11/19/23 16:40 11/19/23 19:45 11/19/23 19:45 11/19/23 19:00 11/19/23 19:48
*Radiology
Radiology exam reviewed: radiology read reviewed
*Pulse Oximetry
Patient hypoxic: no
*Critical Care Note
Total Time (30-74mins, 75-104mins- exclusive of procedures): Not Applicable
ED Attending Note
-
Portions of this chart may have been created with voice recognition software.� Occasional wrong word or��sound alike� substitutions may have occurred due to the inherent limitations of voice recognition software.
Discharge Plan
Departure
Patient Disposition: Home (Routine Discharge)
Date of Disposition: 11/19/23
Time of Disposition: 19:23
Patient with high blood pressure during this ER visit?: No
Condition: Good
Covid-19: Not Applicable
Discharge Problem:
Pneumonia, Pneumonia
Instructions: Pneumonia in adults
Prescriptions:
New
doxycycline hyclate 100 mg capsule
100 mg PO BID Qty: 20 0RF
No Action
ezetimibe 10 MG tablet
10 mg PO HS
levothyroxine 88 MCG tablet
88 mcg PO DAILY
carvedilol 25 mg Tablet
25 mg PO BID
atorvastatin 20 mg tablet
20 mg PO HS
epoetin calin-epbx 10,000 unit/mL Solution
10,000 unit SC Q21D
clonidine 0.3 mg/24 hr patch weekly
1 patch transdermal QWEEK
cinacalcet 30 mg Tablet
30 mg PO DAILY Qty: 30 0RF
methenamine hippurate 1 gram Tablet
1 g PO BID
fluticasone propionate 50 mcg/actuation [place],Suspension
2 spray INTRANASAL DAILY
acetaminophen 325 mg tablet
650 mg PO DAILYPRN PRN (Reason: mild pain)
clopidogrel 75 mg Tablet
75 mg PO DAILY Qty: 30 0RF
nifedipine 30 mg Tablet Extended Release
90 mg PO BID Qty: 120 0RF
sodium bicarbonate 650 mg Tablet
650 mg PO BID Qty: 60 0RF
famotidine 20 mg Tablet
20 mg PO QPM Qty: 30 0RF
tamsulosin 0.4 mg Capsule
0.4 mg PO DAILY Qty: 30 0RF
dicyclomine 20 mg Tablet
20 mg PO TIDPRN PRN (Reason: abd cramps)
escitalopram oxalate 10 mg Tablet
10 mg PO DAILY
cholecalciferol (vitamin D3) [Vitamin D3] 125 mcg (5,000 unit) Tablet
125 mcg PO DAILY
hydralazine 50 mg tablet
50 mg PO TID
isosorbide mononitrate 60 mg tablet extended release 24 hr
120 mg PO DAILY
melatonin 5 mg tablet
5 mg PO HS
Refresh Classic (PF) 1.4-0.6 % Dropperette
1 drops ophthalmic (eye) QIDPRN PRN (Reason: dry eye, crust) 10 Days Qty: 1 0RF
torsemide 20 mg tablet
40 mg PO DAILY Qty: 30 0RF
cefuroxime axetil 250 mg tablet
250 mg PO BID Qty: 10 0RF
Referrals:
Laci Angeles MD [Family Provider] - Follow up in 2-3 days
Interventions
Interventions:
*Risk Screen - Suicide Last Done: 11/19/23 16:40
*General Assessment Last Done: 11/19/23 16:40
*Neglect/Abuse Screening Last Done: 11/19/23 16:40
ED- Fall Risk Assessment Last Done: 11/19/23 16:46
*ED COVID-19 Vaccine History Last Done: 11/19/23 16:40
ED-Female Genitourinary Assessment Last Done: 11/19/23 16:43
Discharge Date and Time
Print Language: ESTONIAN
[2023-11-19 20:00] VITALS: BP 103/48
[2023-11-19 21:00] VITALS: BP 114/45
== END 2023-11-19 21:30 | disposition home or self-care (01) ==
LOC: EMR 16:35
PROVIDERS: Nurse Practitioner; Student in an Organized Health Care Education/Training Program; EMERGENCY PHYSICIAN Emergency Medicine; FAMILY PHYSICIAN Internal Medicine
DX: J18.9 Pneumonia, unspecified organism (principal); I25.10 Atherosclerotic heart disease of native coronary artery without angina pectoris; I12.9 Hypertensive chronic kidney disease with stage 1 through stage 4 chronic kidney disease, or unspecified chronic kidney disease; E11.22 Type 2 diabetes mellitus with diabetic chronic kidney disease; E11.51 Type 2 diabetes mellitus with diabetic peripheral angiopathy without gangrene; E03.9 Hypothyroidism, unspecified; E78.00 Pure hypercholesterolemia, unspecified; Z85.828 Personal history of other malignant neoplasm of skin; Z86.73 Personal history of transient ischemic attack (TIA), and cerebral infarction without residual deficits; Z87.891 Personal history of nicotine dependence; Z90.49 Acquired absence of other specified parts of digestive tract; Z90.710 Acquired absence of both cervix and uterus; Z95.1 Presence of aortocoronary bypass graft; Z95.5 Presence of coronary angioplasty implant and graft
CPT/HCPCS: 99283; 71046; 80053; 81003; 81015; 83690; 85025; 87077; 87086; 87186